=== PATIENT | male | born 1975 | race Two or more races ===

== ENCOUNTER 2023-12-30 13:30 | Emergency (ER) | payer OTHER ==
[~2023-12-30] VITALS: Ht 167.6 cm; Wt 75.7 kg
[2023-12-30] MEDS ORDERED: METOCLOPRAMIDE HCL 10 MG/2 ML VIAL ONE (15:02)
[2023-12-30] MEDS ORDERED: diphenhydrAMINE HCL 50 MG/ML VIAL ONE (15:02)
[2023-12-30] MEDS ORDERED: ACETAMINOPHEN ES 500 MG TABLET ONE (15:02)
[2023-12-30] MEDS: ACETAMINOPHEN ES 500 MG TABLET PO ONE (15:03)
[2023-12-30] MEDS: METOCLOPRAMIDE HCL 10 MG/2 ML VIAL IV ONE (15:03)
[2023-12-30] MEDS: diphenhydrAMINE HCL 50 MG/ML VIAL IV ONE (15:03)
[2023-12-30] MEDS: IV NS 0.9% 1,000 ML BAG IV ONE (15:03)
[2023-12-30 15:15] LABS: BASOPHILS % (AUTO) 0.2 % (0.0-2.0); HEMATOCRIT 39 % (39-51); LYMPHOCYTES % (AUTO) 7.7 % (20.0-44.0); MEAN CORPUSCULAR HEMOGLOBIN 28 PG (26.0-33.0); MEAN CORPUSCULAR HGB CONC 33 g/dl (31.0-36.0); MEAN CORPUSCULAR VOLUME 84 fL (80-96); MONOCYTES # (AUTO) 0.9 K/uL (0.1-1.30); MONOCYTES % (AUTO) 7.3 % (2.0-12.0); NEUTROPHILS # (AUTO) 10.9 K/uL (1.8-8.9); NEUTROPHILS % (AUTO) 84.8 % (43.0-81.0); PLATELET COUNT (AUTO) 367 K/uL (150-450); RED BLOOD CELL COUNT(AUTO) 4.66 MIL/uL (4.5-6.0); RED CELL DISTRIBUTION WIDTH 16.7 % (11.5-15.0); WHITE BLOOD COUNT (AUTO) 12.9 K/uL (4.3-11.0)
[2023-12-30 15:23] LABS: CALCIUM, SERUM 9.1 mg/dL (8.5-10.1); CREATININE 0.9 mg/dL (0.6-1.3); POTASSIUM 3.7 mmol/L (3.5-5.1)
[2023-12-30 15:30] LABS: ALBUMIN 3.1 g/dL (3.4-5.0); BILIRUBIN,DIRECT 0.1 mg/dL (0.0-0.2); BILIRUBIN,TOTAL 0.4 mg/dL (0.2-1.0); TOTAL PROTEIN, SERUM 8.4 g/dL (6.4-8.2)
[2023-12-30] MEDS ORDERED: METO-295 PO (17:21)
[2023-12-30 17:52] VITALS: BP 128/80; TEMP 98.6; O2SAT 99
== END 2023-12-30 17:53 | disposition home or self-care (01) ==
LOC: ER 13:34
DX: R51.9 Headache, unspecified (principal); R50.9 Fever, unspecified
CPT/HCPCS: 99285; 96374; 70450; 96361; 96375; 85025; 80048; 80076; 36415; J1200; J2765; J7030